=== PATIENT | male | born 1995 | race Caucasian/White ===

== ENCOUNTER 2017-10-15 19:32 | Emergency (ER) | payer OTHER ==
[2017-10-15] MEDS ORDERED: XYLOCAINE 1%/SOD BICARB 20 ML VIAL INFIL ONE (21:24)
[2017-10-15] MEDS ORDERED: IBUPROFEN 800 MG TAB ONE (21:25)
[2017-10-15] MEDS ORDERED: BUPIVACAINE 0.25% 30 ML VIAL ONE (21:25)
[2017-10-15] MEDS ORDERED: DIPHTHERIA/TETANUS/PERTUSSIS 0.5 ML SYR/VIAL IM. ONE (22:51)
--- NOTE | 2017-10-16 07:32 | DIAGNOSTIC IMAGING REPORT ---
R FINGER(S) MIN 2 VIEWS ROUTINE CLINICAL HISTORY: RT FINGER PAIN pain COMPARISON: None. DISCUSSION: The bones and joint spaces appear intact. There is no evidence of fracture, dislocation or bony disease. Soft tissue edema and disruption overlying the dorsal aspect distal phalanx. IMPRESSION: Soft tissue disruption. No acute bony abnormality. The above report was generated using voice recognition software. It may contain grammatical, syntax or spelling errors. Electronically signed by: Jovan Cervantes M.D. 10/16/2017 7:31 AM Dictated Date/Time: 10/16/2017 7:30 AM
--- NOTE | 2017-10-16 14:56 | EMERGENCY ROOM VISIT NOTE ---
History First contact with patient: 00:22 Chief Complaint: FINGER PAIN Stated Complaint: RT 2ND DIGIT FINGERNAIL CUT, BLEEDING History of Present Illness The patient is a 22 year old male who presents to the Emergency Room with complaints of an injury to his right index finger that occurred when he accidentally slammed the tip of it in a car door. He denies any numbness or tingling. The patient thought that it was just a scratch, and then he looked at the finger realizing that the nail was partially avulsed. The patient denies any other injuries. He has not taken anything for pain. He is unsure of his last tetanus shot. Review of Systems 6 system review negative. Please see pertinent positives in the history of present illness section. Past Medical/Surgical History Otherwise healthy Social History Smoking Status: Never Smoker Occupation Status: [employer] student Physical Exam Physical Exam VITALS: Vitals are noted on the nurse's note and reviewed by myself. Vital signs stable. GENERAL: 22-year-old male, mildly anxious in appearance,, HEAD: Normocephalic atraumatic. MUSCULOSKELETAL: Right hand: There is a laceration, mildly oozing blood at the distal aspect of the right index finger. The nail is partially avulsed from the nail bed. Sensation in the distal aspect of the finger is intact. Capillary refill is less than 2 seconds. No tenderness over the proximal phalanx. No other injuries. NEUROLOGICAL: No neurological deficits noted Medical Decision & Procedures ER Provider Diagnostic Interpretation: Finger x-ray IMPRESSION: Soft tissue disruption. No acute bony abnormality. The above report was generated using voice recognition software. It may contain grammatical, syntax or spelling errors. Electronically signed by: Jovan Cervantes M.D. 10/16/2017 7:31 AM Dictated Date/Time: 10/16/2017 7:30 AM The status of this report is Signed. Draft = Not yet reviewed or approved by Radiologist. Signed = Reviewed and approved by Radiologist. <AttendingPhy></AttendingPhy> <FamilyPhy>[facility]</FamilyPhy> <PrimaryPhy>[facility]</PrimaryPhy> <UnitNumber>[id number]</ UnitNumber> <VisitNumber>[id number]</VisitNumber> <PatientName>ROS LUU</ PatientName> <DateOfBirth>1995</DateOfBirth> <Location>[facility]</Location> < ServiceDate>10/15/17</ServiceDate> <MNE>ESINDI</MNE> <OrderingPhy>No Doctor, Assigned</OrderingPhy> <OrderingPhyMNE>f rep ord dr anderson</OrderingPhyMNE> < DictatingPhyMNE>f rep dict dr anderson</DictatingPhyMNE> <CCListMNE>f rep ct mne</ CCListMNE> <AdmittingPhyMNE>f pt admit dr anderson</AdmittingPhyMNE> <AttendingPhyMNE >f pt attend dr anderson</AttendingPhyMNE> Procedure The area was sterilely draped after proper anesthesia using lidocaine, Marcaine via a digital block, the wound was explored. The nail was gently removed from the nailbed There was a 3 mm laceration to the nailbed, mildly oozing blood. No foreign material in the wound. It appeared clean. The laceration on the nailbed was repaired using 4 5-0 simple interrupted sutures. The nail then was gently placed back under the nail fold. It was secured down with 4 5-0 simple Ethilon sutures at all corners. Hemostasis was achieved. The patient tolerated the procedure well. The patient was given a metal splint and a bandage ED Course The patient was seen and examined He was given Motrin 800 mg for pain Imaging was performed and reviewed The laceration/nail was repaired. Please see my procedure note. The patient was given an Adacel injection Discharge instructions were reviewed, and he was discharged in good condition Medical Decision Differential diagnosis: Laceration, nail avulsion, fracture, open fracture, partial amputation This patient is a 22-year-old male presents to the emergency department with a finger injury after he slammed in a car door. On exam, the nail was already partially avulsed. There is also a laceration to the nailbed. These were repaired. Please see my above note. There was no fracture. The patient was given an Adacel injection. He will follow-up in 2 weeks for suture removal. He will return with any new concerns such as signs of infection. This chart was completed in part utilizing [employer] Voice Recognition software. Attempts were made to minimize the grammatical errors, random word insertions, pronoun errors and incomplete sentences. Any formal questions or concerns about the content, text or information contained within the body of this dictation should be directly addressed to the provider for clarification. Impression Primary Impression: Finger laceration Departure Information Dispostion Home / Self-Care Condition GOOD Referrals [facility] (PCP) Forms WORK / SCHOOL INSTRUCTIONS, HOME CARE DOCUMENTATION FORM, IMPORTANT VISIT INFORMATION Patient Instructions [facility]
== END 2017-10-15 22:55 | disposition home or self-care (01) ==
LOC: C.EDD 19:32
DX: S61.310A Laceration without foreign body of right index finger with damage to nail, initial encounter (principal); W23.0XXA Caught, crushed, jammed, or pinched between moving objects, initial encounter; Z23 Encounter for immunization

== ENCOUNTER 2017-10-30 12:29 | Emergency (ER) | payer OTHER ==
[~2017-10-30] VITALS: Ht 182.9 cm; Wt 89.0 kg
[2017-10-30 12:33] VITALS: TEMP 36.7; Ht 182.9 cm; Wt 89.0 kg
[2017-10-30] MEDS ORDERED: LIDOCAINE 1% BUFFERED INJ 5 ML VIAL INFIL ONE (13:00)
--- NOTE | 2017-10-30 13:41 | EMERGENCY ROOM VISIT NOTE ---
History First contact with patient: 12:38 Chief Complaint: SUTURE/STAPLE REMOVAL Stated Complaint: STITCHES IN FINGER NEED TO BE REMOVED Nursing Triage Summary: Pt here with stictches in right 2nd finger nail that were placed October 15. Pt went to [facility] yesterday and they could not get all of the stitches out. Denies any problems History of Present Illness The patient is a 22 year old male who presents to the Emergency Room with complaints of needing sutures removed from his right index finger. The patient initially slammed his finger in a car door avulsing the nail. The patient had the sutures placed approximately 2 weeks ago. He reports that there are sutures under the nail that need to be removed. He denies any significant problems with the sutures. He had the sutures that were placed in the nail itself removed at [facility] yesterday. The nail has remained intact. Review of Systems 6 system review negative. Please see pertinent positives in the history of present illness section. Past Medical/Surgical History Otherwise healthy Social History Smoking Status: Never Smoker Occupation Status: [employer] student Current/Historical Medications No Active Prescriptions or Reported Meds Physical Exam Vital Signs Date Time Temp Pulse Resp B/P (MAP) Pulse Ox O2 Delivery O2 Flow Rate FiO2 10/30/17 13:49 69 16 96 10/30/17 12:33 36.7 64 16 119/74 99 Room Air Physical Exam VITALS: Vitals are noted on the nurse's note and reviewed by myself. Vital signs stable. GENERAL: 22-year-old male, in no acute distress, nondiaphoretic, well-developed well-nourished. SKIN: The skin was without rashes, erythema, edema, or bruising. HEAD: Normocephalic atraumatic. MUSCULOSKELETAL: RIGHT HAND: 4 sutures are present in the nail bed. The nail is still significantly adhered. Sensation in the finger is intact. Capillary refill is less than 2 seconds. No significant redness, swelling or discharge. NEURO: Patient was alert and oriented to person place and time. Normal sensation to touch. No focal neurological deficits. Medical Decision & Procedures Procedure 4 cc of Buffered lidocaine was used to perform a digital block on the right index finger. After proper anesthesia, the area was thoroughly cleansed and sterilely draped. Using scissors, the nail was gently removed from the nailbed. 4 sutures were removed from the nailbed. The nail was then secured back in place under the nail fold using 4 simple interrupted Ethilon sutures The patient tolerated the procedure well Neosporin was applied and a Kerlix bandage ED Course The patient was seen and examined The sutures were removed. Please see my procedure note. Discharge instructions were reviewed, and he was discharged in good condition Medical Decision Differential diagnosis: Wound infection, well-healing laceration, This patient is a 22-year-old male presented to the emergency department to have sutures removed underneath the nail. There were no signs of infection. Unfortunately, the nail was still significantly adhered. A digital block was performed, the nail was removed, the sutures were then removed. The nail was secured in place with 4 sutures. The patient tolerated the procedure well. He was given a bulky bandage. He will follow-up in 2 weeks for suture removal. This chart was completed in part utilizing [employer] Voice Recognition software. Attempts were made to minimize the grammatical errors, random word insertions, pronoun errors and incomplete sentences. Any formal questions or concerns about the content, text or information contained within the body of this dictation should be directly addressed to the provider for clarification. Impression Primary Impression: Encounter for removal of sutures Departure Information Dispostion Home / Self-Care Condition GOOD Prescriptions No Active Prescriptions or Reported Meds Referrals [facility] (PCP) Patient Instructions [facility] Additional Instructions Please try to keep the area clean. Wash at least twice daily with soap and water. Keep the bandage in place for the first 24 hours. Then, it is okay to leave open to air. Please try to avoid soaking the hand in water such as doing dishes or baths. Suture removal in 12-14 days Please watch for signs of infection such as redness, swelling, fever or severe pain
[2017-10-30 13:49] VITALS: BP 125/78; PULSE 69; O2SAT 96
== END 2017-10-30 13:50 | disposition home or self-care (01) ==
LOC: C.EDB 12:30 → C.EDD 13:50
DX: S61.300D Unspecified open wound of right index finger with damage to nail, subsequent encounter (principal); W23.0XXD Caught, crushed, jammed, or pinched between moving objects, subsequent encounter